=== PATIENT | female | born 2000 | race Caucasian/White ===

== ENCOUNTER 2022-10-02 17:06 | Inpatient (IN) | payer OTHER ==
[~2022-10-02] VITALS: Ht 170.2 cm; Wt 103.2 kg
[2022-10-02 17:57] VITALS: BP 113/70
[2022-10-02] MEDS ORDERED: PRENTAB9 PO (18:02)
[2022-10-02] MEDS ORDERED: ECOT81TA5 PO (18:02)
[2022-10-02 18:26] LABS: HEMATOCRIT 41.5 % (36.0-47.0); MEAN CORPUSCULAR HEMOGLOBIN 30.6 pg (27.0-33.0); MEAN CORPUSCULAR HGB CONC 33.7 g/dl (32.0-36.5); MEAN CORPUSCULAR VOLUME 90.6 fl (80.0-96.0); PLATELET COUNT, AUTOMATED 217 10^3/uL (150-450); RED BLOOD COUNT 4.58 10^6/uL (4.00-5.40); WHITE BLOOD COUNT 7.8 10^3/uL (4.0-10.0)
[2022-10-02] MEDS ORDERED: LACTATED RINGER'S 1000 ML IV STA (18:43)
[2022-10-02] MEDS ORDERED: PENICILLIN G POTASSIUM 5 MU IV 5 MU in D5W MINI-BAG PLUS 100 ML IV STA (18:43)
[2022-10-02] MEDS ORDERED: LIDOCAINE 1% MDV 20ML VIAL INFIL PRN (18:45)
[2022-10-02] MEDS ORDERED: OXYTOCIN INJ 10UNITS/ML 1ML VIAL IM PRN (18:45)
[2022-10-02] MEDS ORDERED: TRANEXAMIC ACID INJection 1,000 MG in NS 100 ML IV PRN (18:45)
[2022-10-02] MEDS ORDERED: METHYLERGONOVINE MALEATE 0.2MG/ML 1ML VIAL IM PRN (18:45)
[2022-10-02] MEDS ORDERED: OXYTOCIN DRIP 30 UNITS in IV 1 EA IV PRN ×6 (18:45)
[2022-10-02] MEDS ORDERED: CARBOPROST TROMETHAMINE 250 MCG/ML AMP IM PRN (18:45)
[2022-10-02] MEDS ORDERED: LR 1,000 ML IV SCH (19:00)
[2022-10-02] MEDS ORDERED: NALBUPHINE HCL 10 MG/ML 1ML AMP IV PRN (19:40)
[2022-10-02] MEDS ORDERED: PROMETHAZINE 25MG/ML 1ML VIAL IV PRN (19:40)
[2022-10-02] MEDS: miSOPROStol 50MCG 1/2 TABLET PO SCH (20:56)
[2022-10-02 21:08] VITALS: BP 121/78
[2022-10-03] VITALS (36 sets, daily range): BP systolic 85–154; BP diastolic 53–84; O2SAT 98
[2022-10-03] MEDS: miSOPROStol 50MCG 1/2 TABLET PO SCH ×2 (01:08→05:28)
[2022-10-03] MEDS ORDERED: ONDANSETRON 4MG 2ML VIAL IV PRN (08:05)
[2022-10-03] MEDS ORDERED: NALOXONE INJ 0.4MG/1ML VIAL IV PRN (08:05)
[2022-10-03] MEDS ORDERED: LR 500 ML IV PRN (08:05)
[2022-10-03] MEDS ORDERED: EPIDURAL/PCA KEYS XX PRN (08:05)
[2022-10-03] MEDS ORDERED: FENTANYL/ROPIVACAINE/NACL BAG 100 ML EPIDURAL SCH (08:05)
[2022-10-03] MEDS ORDERED: diphenhydrAMINE 50MG/ML VIAL IV PRN (08:05)
[2022-10-03] MEDS: ePHEDrine SULFATE 25 MG/5 ML(5MG/ML) SYRINGE IVP PRN ×2 (09:29→09:32)
[2022-10-03] MEDS ORDERED: OXYTOCIN DRIP 30 UNITS in IV 1 EA IV SCH ×3 (11:15→15:30)
[2022-10-03] MEDS ORDERED: LR 1,000 ML IV SCH (11:15)
[2022-10-03] MEDS ORDERED: PEN G POT 3,000,000 UNIT/50 ML 3,000,000 UNIT in IV 1 EA IV SCH (12:00)
[2022-10-03] MEDS ORDERED: MOM 30ML SUSPENSION UDC PO PRN (14:50)
[2022-10-03] MEDS ORDERED: DOCUSATE SODIUM 100MG CAPSULE PO PRN (14:50)
[2022-10-03] MEDS ORDERED: PROMETHAZINE 25 MG TAB PO PRN (14:50)
[2022-10-03] MEDS ORDERED: METHYLERGONOVINE MALEATE 0.2 MG TAB PO PRN (14:50)
[2022-10-03] MEDS ORDERED: IBUPROFEN 600MG TAB PO PRN (14:50)
[2022-10-03] MEDS ORDERED: ACETAMINOPHEN 500 MG TAB PO PRN (14:50)
[2022-10-03] MEDS ORDERED: ACETAMINOPHEN TAB 650MG DOSE (2X325MG) PO PRN (14:50)
[2022-10-03] MEDS ORDERED: RHOGAM 300MCG (1500IU) INJ IM SCH (14:50)
[2022-10-03] MEDS ORDERED: IBUPROFEN 800 MG TAB PO PRN (14:50)
[2022-10-03] MEDS: LR 1,000 ML IV SCH ×2 (15:00→23:00)
[2022-10-03] MEDS: DIBUCAINE 1% OINTMENT 30GM TOP PRN (21:34)
[2022-10-04 05:55] VITALS: BP 100/54; O2SAT 96
[2022-10-04] MEDS: PRENATAL VITAMINS CHEWABLE TABLET PO SCH (08:17)
[2022-10-04 18:00] VITALS: BP 108/57; O2SAT 97
[2022-10-04] MEDS: DIBUCAINE 1% OINTMENT 30GM TOP PRN (19:02)
[2022-10-05 06:05] VITALS: BP 102/65; O2SAT 95
[2022-10-05] MEDS: PRENATAL VITAMINS CHEWABLE TABLET PO SCH (08:04)
[2022-10-05] MEDS ORDERED: MEASLES,MUMPS,RUBELLA VACCINE INJ (MMR-II) SC.IMMUN ONE (09:00)
[2022-10-05 18:00] VITALS: BP 105/62; O2SAT 97
== END 2022-10-05 18:30 | disposition home or self-care (01) | DRG 807 ==
LOC: M LDI 17:36 → M OBS 10-03 17:30
PROVIDERS: ADMIT Obstetrics & Gynecology; ATTEND Obstetrics & Gynecology
PROC: 3E033VJ Introduction of Other Hormone into Peripheral Vein, Percutaneous Approach (ICD-10-PCS; 2022-10-02)
PROC: 3E0P7VZ Introduction of Hormone into Female Reproductive, Via Natural or Artificial Opening (ICD-10-PCS; 2022-10-02)
PROC: 10E0XZZ Delivery of Products of Conception, External Approach (ICD-10-PCS; principal; 2022-10-03)
PROC: 0KQM0ZZ Repair Perineum Muscle, Open Approach (ICD-10-PCS; 2022-10-03)
DX: O99.824 Streptococcus B carrier state complicating childbirth (principal); Z37.0 Single live birth; Z3A.39 39 weeks gestation of pregnancy; O26.00 Excessive weight gain in pregnancy, unspecified trimester; O70.1 Second degree perineal laceration during delivery